=== PATIENT | female | born 1975 | race Caucasian/White ===

== ENCOUNTER → 2021-03-29 | Outpatient (CLI) | payer OTHER | LOC: SLEEP 15:26 | DX: Z01.811 Encounter for preprocedural respiratory examination (principal); R06.02 Shortness of breath; E66.9 Obesity, unspecified; Z68.39 Body mass index [BMI] 39.0-39.9, adult | CPT/HCPCS: 95810 ==

== ENCOUNTER → 2022-06-16 | Outpatient (CLI) | payer OTHER | LOC: KOH-I 11:15 | DX: M25.562 Pain in left knee (principal); M17.12 Unilateral primary osteoarthritis, left knee | CPT/HCPCS: 73564 ==